=== PATIENT | female | born 1995 | race Caucasian/White ===

== ENCOUNTER 2025-03-07 09:35 | Emergency (ER) | payer OTHER, SELFPAY ==
[2025-03-07 09:35] VITALS: BP 179/96
--- NOTE | 2025-03-07 12:15 | ED.GENMED ---
History of Present Illness
General
Chief Complaint: Skin Surface Trauma
Source: patient
Exam Limitations: none
Time Seen by Provider: 03/07/25 10:03
Nursing documentation reviewed up to this point in time: agreed with
History of Present Illness
History of Present Illness:
29-year-old female presenting to the emergency department today with concerns of a laceration to her left eyebrow after she slipped and hit a coffee table. She claims that she is up-to-date with vaccinations and tetanus shot did not lose
consciousness no nausea vomiting no numbness or weakness no additional stress.
Review of Systems
Review of Systems
Allergies reviewed?: Yes
All Other Systems: ROS reviewed and negative except as documented in HPI and ROS
Phy Exam
Physical Exam
Physical Exam:
GENERAL: Alert , in no apparent distress
EYE: pupils equal and reactive
NECK: Supple, no significant adenopathy.
ENT: 2.5 cm laceration just above the left lateral eyebrow. Superficial depth. o/p clr, mmm.
CARDIAC: Regular rate and rhythm .
LUNGS: Clear breath sounds bilaterally, no acute respiratory distress, no wheezes/rales/rhonchi
ABDOMEN: Soft, without focal tenderness, no r/g, no cvat
NEUROLOGICAL: Alert and oriented, no focal neuro deficits
SKIN: Warm and dry, skin intact.
MUSCULOSKELETAL: No edema, well perfused.
PSYCH: Normal and appropriate interaction.
Course
Orders/Labs/Results
Orders:
Orders
03/07/25 12:27
EKG [Electrocardiogram (*1)] Urgent
Reason for Study: Tachycardia
03/07/25 12:28
EKG- Treatment ONCE
Vital Signs
Initial and Last Documented VS:
Initial Vital Signs
Temp Pulse Resp BP Pulse Ox
98 F 141 20 179/96 97
03/07/25 09:35 03/07/25 09:35 03/07/25 09:35 03/07/25 09:35 03/07/25 09:35
Last Documented Vital Signs
Temp Pulse Resp BP Pulse Ox
98 F 125 16 152/69 99
03/07/25 09:35 03/07/25 12:19 03/07/25 12:19 03/07/25 12:19 03/07/25 12:19
Procedures
Laceration Closure
Left Superior Lateral Eye brow:
Status of Wound: clean
Size of Wound in cm: 2.5
Description of Wound Edges: sharp
Preparation: cleaned with saline
Revision/Debridement: routine- no revision
Wound exploration: explored to base- no FB
Type of Closure: Dermabond-skin glue
MDM/Problems Addressed
MDM/Problems Addressed:
29-year-old female presenting to the emergency department today with concerns of a laceration just above her left eyebrow after slipping and hitting the edge of a coffee table. This was multiple hours ago. No loss of consciousness no progressive
symptoms no neurologic symptoms. No additional emergent findings [place] head CT negative. Laceration closed with Dermabond otherwise stable for outpatient follow-up. Return precautions given.
Prior to discharge her heart rate was in the 120s. EKG was done showing sinus tachycardia. She denies any current symptoms associated with this. It was recommended considering the significant elevation of heart rate if you work up and look
further into the potential cause of this. She believes this is likely from her Graves' disease. She does take a low-dose of methimazole daily. The concern of threat due to the elevated heart rate was discussed thoroughly with the patient. She
claims that she was not able to stay and understands the risk but still would not like to get the workup here. Very strict return precautions were discussed and advised very close outpatient follow-up
*Critical Care Note
Total Time (30-74mins, 75-104mins- exclusive of procedures): Not Applicable
ED Attending Note
-
Portions of this chart may have been created with voice recognition software.� Occasional wrong word or��sound alike� substitutions may have occurred due to the inherent limitations of voice recognition software.
Discharge Plan
Departure
Patient Disposition: Home (Routine Discharge)
Date of Disposition: 03/07/25
Time of Disposition: 13:16
Patient with high blood pressure during this ER visit?: No
Condition: Good
Covid-19: Not Applicable
Discharge Problem:
Forehead laceration, Tachycardia
Instructions: Laceration Repair With Glue (DC)
Referrals:
Janette Thompson, DO [Family Provider] -
Activity Restrictions/Additional Instructions:
You came to the emergency department today with concerns of a laceration to your left sided forehead. This was cleaned and closed with Dermabond. Please keep the area clean and this will follow-up over the next week or so. Return for any
worsening, new or concerning symptoms.
Also, of note your heart rate was elevated. It was recommended that you get a workup here in the labs. You were unable to do that today is very important you follow-up closely for further assessment and immediately return for any progressive
symptoms.
Interventions
Interventions:
*Risk Screen - Suicide Last Done: 03/07/25 09:35
*General Assessment Last Done: 03/07/25 09:35
*Neglect/Abuse Screening Last Done: 03/07/25 09:35
ED-Skin Assessment Last Done: 03/07/25 11:04
Discharge Date and Time
Print Language: DIVEHI
[2025-03-07 12:19] VITALS: BP 152/69
== END 2025-03-07 13:20 | disposition home or self-care (01) ==
LOC: EMR 09:35
PROVIDERS: EMERGENCY PHYSICIAN Emergency Medicine; FAMILY PHYSICIAN Family Medicine
DX: S01.81XA Laceration without foreign body of other part of head, initial encounter (principal); X58.XXXA Exposure to other specified factors, initial encounter
CPT/HCPCS: 99283; 12011; 93005